=== PATIENT | female | born 1965 | race Caucasian/White ===

== ENCOUNTER 2018-12-29 07:15 | Day surgery (SDC) | payer OTHER ==
[~2018-12-29] VITALS: Ht 160 cm; Wt 90.0 kg
[~2018-12-29 07:15] MED LIST: ASPI-817 PO; ATOR40TA68 PO; DEXTROSE 5%-0.9% NACL 1,000 ML IV SCH; LISI10TA2 PO; METO-448 PO; METO1TAB19 PO
[2018-12-29 08:00] VITALS: BP 130/75; PULSE 67; RESP 20; Ht 160 cm; Wt 90.0 kg
[2018-12-29] MEDS ORDERED: ROCURONIUM 50 MG INJ ONE (09:26)
[2018-12-29] MEDS ORDERED: PROPOFOL 20 ML ONE (09:26)
[2018-12-29] MEDS ORDERED: LIDOCAINE 100 MG SYRINGE ONE (09:26)
[2018-12-29] MEDS ORDERED: FENTAnyl 50 MCG/ML VIAL ONE (09:26)
[2018-12-29] MEDS ORDERED: CEFAZOLIN 1 GM INJ ONE (09:26)
[2018-12-29] MEDS ORDERED: SUCCINYLCHOLINE CHLORIDE 100 MG/5 ML SYG IV ONE (09:26)
[2018-12-29] MEDS ORDERED: DIPHENHYDRAMINE 50 MG INJ IV PRN (09:30)
[2018-12-29] MEDS ORDERED: ONDANSETRON 4 MG INJ IV PRN (09:30)
[2018-12-29] MEDS ORDERED: FENTAnyl 50 MCG/ML VIAL IV PRN ×2 (09:30)
[2018-12-29] MEDS ORDERED: MEPERIDINE 25 MG INJ IV PRN (09:30)
[2018-12-29] MEDS ORDERED: METOCLOPRAMIDE 10 MG INJ IV PRN (09:30)
[2018-12-29] MEDS ORDERED: HYDROmorphONE 1 MG/5 ML IV SYRINGE IV PRN ×3 (09:30)
[2018-12-29] MEDS ORDERED: ALBUTEROL 0.083% (NEB) 2.5 MG/3 ML AMP HHN PRN (09:30)
[2018-12-29] MEDS ORDERED: SUGAMMADEX SODIUM 200 MG/2 ML VIAL IV ONE (10:03)
[2018-12-29 10:15] VITALS: BP 112/56; PULSE 61; RESP 18
[2018-12-29 10:20] VITALS: BP 108/58; PULSE 66; RESP 18
[2018-12-29 10:25] VITALS: BP 127/60; PULSE 64; RESP 17
[2018-12-29 10:30] VITALS: BP 124/73; PULSE 63; RESP 16
== END 2018-12-29 10:43 | disposition home or self-care (01) ==
LOC: SDS 07:15
PROVIDERS: ATTEND Obstetrics & Gynecology
DX: N85.00 Endometrial hyperplasia, unspecified (principal); Z78.0 Asymptomatic menopausal state; D25.9 Leiomyoma of uterus, unspecified; I10 Essential (primary) hypertension; E66.9 Obesity, unspecified
CPT/HCPCS: 58558; J0690; J2001; J3010; Z7610; 88305